=== PATIENT | male | born 1960 | race Caucasian/White ===

== ENCOUNTER 2017-05-04 07:46 | Day surgery (SDC) | payer BC ==
[~2017-05-04 07:46] MED LIST: RINGERS SOLUTION,LACTATED 1,000 ML IV PRN
--- OUTSIDE RECORDS SUMMARY | 2017-05-04 07:50 | XMS REPORT | Continuity of Care Document ---
:1960 Author Organization [employer] [place] [address] Care Team Providers Name Role Phone Phillip Farfan Primary Care Provider [phone] Source Comments This disclosure is being made pursuant to the [employer] program and maynot contain all information available regarding this patient.[employer] Active Allergies and Adverse Reactions Allergen Noted Date Severity Reactions Comments Sulfa Antibiotics 11/22/2014 Medium Hallucinations Current Medications Be aware that medications may not be up to date as of this document. Alwaysverify current medications with the patient. Prescription Sig. Disp. 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 Overview: Overview: ROBER KAYE MD Personal history of malignant neoplasm of prostate 11/16/2013 Overview: Overview: ROBER KAYE MD Slowing of urinary stream 11/10/2012 Overview: Overview: ROBER KAYE MD Urinary hesitancy 11/10/2012 Overview: Overview: ROBER KAYE MD Malignant neoplasm of prostate (HCC) 07/12/2012 Overview: Overview: ROBER KAYE MD Other specified pre-operative examination 06/14/2012 Overview: Overview: ROBER KAYE MD Family history of malignant neoplasm of prostate 06/06/2012 Overview: Overview: ROBER KAYE MD Hydrocele 06/06/2012 Overview: Overview: ROBER KAYE MD Elevated prostate specific antigen (PSA) 06/06/2012 Overview: Overview: ROBER KAYE MD Spermatocele 06/06/2012 Overview: Overview: ROBER KAYE MD Social History Tobacco Use Types Packs/Day Years Used Date Current Every Day Smoker Smokeless Tobacco: Current User Tobacco Cessation:Counseling Given: Yes Comments: Alcohol Use Drinks/Week oz/Week Comments Yes 20 Cans of beer 12.0 Alcoholic Drinks/day: CURRENT ALCOHOL USER Last Filed Vital Signs Vital Sign Reading Time Taken Blood Pressure 118/80 12/25/2016 4:29 PM [employer] Pulse 62 12/25/2016 4:29 PM [employer] Temperature 36.8 C (98.2 F) 12/25/2016 4:29 PM [employer] Respiratory Rate 18 12/25/2016 4:29 PM [employer] Height 1.753 m (5' 9") 12/25/2016 4:29 PM [employer] Weight 72.576 kg (160 lb) 12/25/2016 4:29 PM [employer] Body Mass Index 23.62 12/25/2016 4:29 PM [employer] Oxygen Saturation - - Plan of Care Date Type Specialty Providers Description 12/30/2017 Appointment Urology Rober Kaye MD [address] [place] [phone] (Fax) Health Maintenance Due Date Last Done Comments Hepatitis C Screening 1977 Pneumococcal Medium Risk 19-64 yo (1 of 1 - PPSV23) 1978 Tetanus/Pertussis (1 - Tdap) 1978 Colonoscopy 2009 Well Adult Visit 2009 Influenza Immunization (#1) 2017 Results from Last 3 Months Not on file Insurance Payer Benefit Plan / Subscriber ID Type Phone Address Group [employer] [place] [employer] [id number] Out of State [phone] [address] [facility] [place] [address] Home: [phone] [place] [phone]
--- NOTE | 2017-05-04 10:33 | OR ---
Operative Report - Dictated Report Narrative: Date: 05/04/2017 Preoperative diagnosis: Epigastric pain and hematemesis; screening for colon cancer Postoperative diagnosis: Duodenitis, gastritis, normal colonoscopy Procedure: Esophagogastroduodenoscopy with biopsy; total colonoscopy Staff surgeon: Kane Yanez MD Anesthesia: Mac per [employer] EBL: Minimal Specimens: Duodenum, antrum, CLOtest Complications: None apparent Description of procedure: After informed consent of bite block was inserted and IV sedation was administered per [employer]. A flexible video endoscope was inserted through the bite block, through the posterior pharynx and into the esophagus under direct vision. The scope was then advanced through the esophagus, stomach, and into the duodenum. The duodenum had wanted villi without ulceration and a biopsy was taken of this finding. The scope was withdrawn into the stomach. There was evidence of gastritis and ulcerations which had healed scarring. A access service representative biopsy for anatomic pathology was taken of this area as well as a CLOtest. The body of the stomach was inspected and demonstrated gastropathy. Retroflexion of the scope in the stomach revealed no evidence of hiatal hernia. Endoscope was withdrawn into the distal esophagus. No abnormalities were seen. The remainder of the esophagus was unremarkable. The patient tolerated this portion of the procedure well and was then placed in the left lateral decubitus position. A flexible fiberoptic video colonoscope was introduced and advanced under direct vision without difficulty to the cecum. The usual landmarks were identified. Preparation was excellent and excellent views were obtained. The findings were of a normal cecum, ascending colon, hepatic flexure, transverse colon, splenic flexure, descending colon, sigmoid colon, and rectum. The mucosal collar, vasculature, and texture were normal throughout. No suspicious masses were seen. There was no diverticulosis. The patient tolerated these procedures well without apparent complications and was discharged from the endoscopy suite in stable condition. Recommendations: Screening Colonoscopy in 10 years. Avoid nonsteroidals. Consult with your physician treating her pain and prescribing your diclofenac to find alternative medications.
[2017-05-04 11:37] VITALS: BP 152/77
== END 2017-05-04 07:47 | disposition home or self-care (01) ==
LOC: AMB 07:46
PROVIDERS: ATTEND Specialist
PROC: 0DJD8ZZ Inspection of Lower Intestinal Tract, Via Natural or Artificial Opening Endoscopic (ICD-10-PCS; 2017-05-04)
PROC: 0DB98ZX Excision of Duodenum, Via Natural or Artificial Opening Endoscopic, Diagnostic (ICD-10-PCS; principal; 2017-05-04 08:55)
PROC: 0DB68ZX Excision of Stomach, Via Natural or Artificial Opening Endoscopic, Diagnostic (ICD-10-PCS; 2017-05-04 08:55)
DX: Z12.11 Encounter for screening for malignant neoplasm of colon (principal); K29.80 Duodenitis without bleeding; K29.70 Gastritis, unspecified, without bleeding; F17.210 Nicotine dependence, cigarettes, uncomplicated; Z68.22 Body mass index [BMI] 22.0-22.9, adult
CPT/HCPCS: 43239; G0121